=== PATIENT | female | born 1955 | race Two or more races ===

== ENCOUNTER 2018-04-22 16:38 | Emergency (ER) | payer OTHER ==
[~2018-04-22] VITALS: Ht 160 cm; Wt 72.6 kg
[~2018-04-22 16:38] MED LIST: AMOX1TAB12 PO; CALTRATE 600 W-1 TAB; CEFUROXIME500 MG PO; EFFEXOR25 MG PO; GABAPENTIN100 MG; MUPIROCIN22 GM TOP; PRINIVIL40 MG PO; TOPROL XL25 MG PO; URIN D.S. TABLE1 TAB PO; VASOTEC2.5 MG PO
[2018-04-22] MEDS ORDERED: TRAZODONE HCL50 MG (16:54)
== END 2018-04-22 23:18 | disposition home or self-care (01) ==
LOC: ER 16:38
DX: N30.80 Other cystitis without hematuria (principal); R11.11 Vomiting without nausea; R10.32 Left lower quadrant pain

== ENCOUNTER 2018-11-17 12:17 | Emergency (ER) | payer OTHER ==
[~2018-11-17] VITALS: Ht 160 cm; Wt 72.6 kg
[~2018-11-17 12:17] MED LIST changes: +TRAZODONE HCL50 MG
[2018-11-17] MEDS ORDERED: GILTUSS TR TAB1 EACH (12:32)
== END 2018-11-17 17:41 | disposition home or self-care (01) ==
LOC: ER
DX: K52.9 Noninfective gastroenteritis and colitis, unspecified (principal)

== ENCOUNTER 2019-10-08 19:35 | Emergency (ER) | payer OTHER ==
[~2019-10-08] VITALS: Ht 160 cm; Wt 72.6 kg
[~2019-10-08 19:35] MED LIST changes: +GILTUSS TR TAB1 EACH
== END 2019-10-08 23:29 | disposition home or self-care (01) ==
LOC: ER 19:35
DX: J06.9 Acute upper respiratory infection, unspecified (principal); Z03.818 Encounter for observation for suspected exposure to other biological agents ruled out

== ENCOUNTER 2020-01-01 15:01 | Emergency (ER) | payer OTHER ==
[~2020-01-01] VITALS: Ht 160 cm; Wt 72.6 kg
== END 2020-01-01 19:34 | disposition home or self-care (01) ==
LOC: ER 15:01
DX: L97.828 Non-pressure chronic ulcer of other part of left lower leg with other specified severity (principal)

== ENCOUNTER 2020-10-02 13:10 | Emergency (ER) | payer OTHER ==
[~2020-10-02] VITALS: Ht 157.5 cm; Wt 78.9 kg
[2020-10-02] MEDS ORDERED: LEVOTHYROXINE25 MCG PO (13:18)
== END 2020-10-02 18:20 | disposition home or self-care (01) ==
LOC: ER 13:10
DX: R50.9 Fever, unspecified (principal); R53.81 Other malaise; R19.7 Diarrhea, unspecified; Z03.818 Encounter for observation for suspected exposure to other biological agents ruled out

== ENCOUNTER 2020-10-08 14:37 | Emergency (ER) | payer OTHER ==
[~2020-10-08] VITALS: Ht 157.5 cm; Wt 77.6 kg
[~2020-10-08 14:37] MED LIST changes: +LEVOTHYROXINE25 MCG PO
[2020-10-08] MEDS ORDERED: LEVOTHYROXINE25 MCG PO (18:24)
== END 2020-10-08 19:14 | disposition home or self-care (01) ==
LOC: ER 14:37
DX: B34.9 Viral infection, unspecified (principal); R05 Cough; Z11.52 Encounter for screening for COVID-19

== ENCOUNTER 2020-11-21 15:38 | Emergency (ER) | payer OTHER ==
[~2020-11-21] VITALS: Ht 157.5 cm; Wt 74.4 kg
[2020-11-21] MEDS ORDERED: HIBICLENS118 ML TOP (18:50)
[2020-11-21] MEDS ORDERED: MUPIROCIN1 G1 TOP (18:50)
[2020-11-21] MEDS ORDERED: AMOX-CLAV 875-1 EACH PO (18:50)
== END 2020-11-21 19:59 | disposition home or self-care (01) ==
LOC: ER 15:38
DX: S80.812A Abrasion, left lower leg, initial encounter (principal); L08.89 Other specified local infections of the skin and subcutaneous tissue; B96.1 Klebsiella pneumoniae [K. pneumoniae] as the cause of diseases classified elsewhere; B96.89 Other specified bacterial agents as the cause of diseases classified elsewhere; X58.XXXA Exposure to other specified factors, initial encounter; Y93.89 Activity, other specified; Y92.89 Other specified places as the place of occurrence of the external cause; Y99.8 Other external cause status

== ENCOUNTER 2020-12-08 18:54 | Emergency (ER) | payer OTHER ==
[~2020-12-08] VITALS: Ht 160 cm; Wt 72.6 kg
[~2020-12-08 18:54] MED LIST changes: +AMOX-CLAV 875-1 EACH PO; +HIBICLENS118 ML TOP; +MUPIROCIN1 G1 TOP
== END 2020-12-08 23:25 | disposition home or self-care (01) ==
LOC: ER 18:54
DX: L97.828 Non-pressure chronic ulcer of other part of left lower leg with other specified severity (principal)

== ENCOUNTER 2020-12-14 07:56 | Outpatient (CLI) | payer OTHER | END 2020-12-14 08:01 | disposition home or self-care (01) | LOC: NUCLEAR 07:56 | PROVIDERS: ATTEND Surgery | DX: I87.2 Venous insufficiency (chronic) (peripheral) (principal) ==

== ENCOUNTER 2020-12-17 06:15 | Outpatient (CLI) | payer OTHER | END 2020-12-17 06:18 | disposition home or self-care (01) | LOC: LAB 06:15 | PROVIDERS: ATTEND Internal Medicine Geriatric Medicine | DX: E03.8 Other specified hypothyroidism (principal); K92.1 Melena; N39.0 Urinary tract infection, site not specified; E78.2 Mixed hyperlipidemia; D50.9 Iron deficiency anemia, unspecified; I11.9 Hypertensive heart disease without heart failure; E56.8 Deficiency of other vitamins; Z12.11 Encounter for screening for malignant neoplasm of colon; E55.9 Vitamin D deficiency, unspecified; N19 Unspecified kidney failure; E11.9 Type 2 diabetes mellitus without complications; R80.8 Other proteinuria ==

== ENCOUNTER 2020-12-22 08:37 | Outpatient (CLI) | payer OTHER | END 2020-12-22 08:59 | disposition home or self-care (01) | LOC: MAMO-SONO 08:37 | PROVIDERS: ATTEND Internal Medicine Geriatric Medicine | DX: N60.11 Diffuse cystic mastopathy of right breast (principal); N60.12 Diffuse cystic mastopathy of left breast; Z12.31 Encounter for screening mammogram for malignant neoplasm of breast; N64.4 Mastodynia ==

== ENCOUNTER 2020-12-29 12:39 | Outpatient (CLI) | payer OTHER | END 2020-12-29 12:43 | disposition home or self-care (01) | LOC: SONOGRAMA 12:39 | PROVIDERS: ATTEND Internal Medicine Geriatric Medicine | DX: E04.1 Nontoxic single thyroid nodule (principal); E03.8 Other specified hypothyroidism ==

== ENCOUNTER 2021-01-04 07:40 | Outpatient (CLI) | payer OTHER | END 2021-01-04 07:52 | disposition home or self-care (01) | LOC: LAB 07:40 | PROVIDERS: ATTEND Internal Medicine Geriatric Medicine | DX: N28.89 Other specified disorders of kidney and ureter (principal); R80.8 Other proteinuria ==

== ENCOUNTER 2021-01-28 12:58 | Outpatient (CLI) | payer OTHER | END 2021-01-28 12:59 | disposition home or self-care (01) | LOC: NUCLEAR 12:58 | PROVIDERS: ATTEND Internal Medicine Geriatric Medicine | DX: M81.0 Age-related osteoporosis without current pathological fracture (principal); M15.0 Primary generalized (osteo)arthritis ==

== ENCOUNTER 2021-02-10 13:17 | Emergency (ER) | payer OTHER ==
[~2021-02-10] VITALS: Ht 160 cm; Wt 72.6 kg
[2021-02-10] MEDS ORDERED: GLUMETZA500 MG PO (13:38)
[2021-02-10] MEDS ORDERED: ZITHROMAX TRI-500 MG PO (16:03)
== END 2021-02-10 16:09 | disposition home or self-care (01) ==
LOC: ER 13:17
DX: J06.9 Acute upper respiratory infection, unspecified (principal); Z11.52 Encounter for screening for COVID-19

== ENCOUNTER 2021-03-08 09:11 | Outpatient (CLI) | payer OTHER ==
[~2021-03-08 09:11] MED LIST changes: +GLUMETZA500 MG PO; +ZITHROMAX TRI-500 MG PO
== END 2021-03-08 09:17 | disposition home or self-care (01) ==
LOC: SONOGRAMA 09:11
PROVIDERS: ATTEND Pathology Anatomic Pathology & Clinical Pathology
DX: D34 Benign neoplasm of thyroid gland (principal); E04.8 Other specified nontoxic goiter

== ENCOUNTER 2021-03-25 12:00 | Outpatient (CLI) | payer OTHER | END 2021-03-25 12:30 | disposition home or self-care (01) | LOC: PPH VACUNA 12:00 | PROVIDERS: ATTEND Emergency Medicine Pediatric Emergency Medicine | DX: Z23 Encounter for immunization (principal) ==

== ENCOUNTER → 2021-03-25 | Outpatient (CLI) | payer OTHER | END | disposition home or self-care (01) | LOC: PPH VACUNA 11:00 | PROVIDERS: ATTEND Emergency Medicine Pediatric Emergency Medicine | DX: Z23 Encounter for immunization (principal) ==

== ENCOUNTER 2021-12-11 18:20 | Emergency (ER) | payer OTHER ==
[~2021-12-11] VITALS: Ht 160 cm; Wt 77.1 kg
== END 2021-12-11 23:13 | disposition home or self-care (01) ==
LOC: ER 18:20
DX: J40 Bronchitis, not specified as acute or chronic (principal); S92.511A Displaced fracture of proximal phalanx of right lesser toe(s), initial encounter for closed fracture; X58.XXXA Exposure to other specified factors, initial encounter; Y93.9 Activity, unspecified; Y92.018 Other place in single-family (private) house as the place of occurrence of the external cause; Y99.9 Unspecified external cause status; Z20.822 Contact with and (suspected) exposure to COVID-19; Z88.6 Allergy status to analgesic agent; Z91.013 Allergy to seafood; I10 Essential (primary) hypertension

== ENCOUNTER 2022-02-22 06:10 | Emergency (ER) | payer OTHER ==
[~2022-02-22] VITALS: Ht 160 cm; Wt 77.1 kg
== END 2022-02-22 13:11 | disposition home or self-care (01) ==
LOC: ER 06:10
DX: E11.9 Type 2 diabetes mellitus without complications (principal); L97.829 Non-pressure chronic ulcer of other part of left lower leg with unspecified severity; I87.8 Other specified disorders of veins; Z88.6 Allergy status to analgesic agent; Z91.013 Allergy to seafood; Z28.311 Partially vaccinated for COVID-19; Z79.84 Long term (current) use of oral hypoglycemic drugs

== ENCOUNTER 2022-03-09 21:08 | Emergency (ER) | payer OTHER ==
[~2022-03-09] VITALS: Ht 162.6 cm; Wt 72.6 kg
[2022-03-10] MEDS ORDERED: PEPCID40 MG PO (05:30)
[2022-03-10] MEDS ORDERED: LEVSIN/SL0.125 MG SL ×2 (05:30→05:32)
[2022-03-10] MEDS ORDERED: ONDANSETRON ODT4 MG PO (05:30)
== END 2022-03-10 06:45 | disposition home or self-care (01) ==
LOC: ER 21:08
DX: K52.9 Noninfective gastroenteritis and colitis, unspecified (principal); E11.9 Type 2 diabetes mellitus without complications; Z79.84 Long term (current) use of oral hypoglycemic drugs; I10 Essential (primary) hypertension; Z88.6 Allergy status to analgesic agent; Z91.013 Allergy to seafood; R11.2 Nausea with vomiting, unspecified

== ENCOUNTER 2022-04-28 17:22 | Emergency (ER) | payer OTHER ==
[~2022-04-28] VITALS: Ht 160 cm; Wt 72.6 kg
[~2022-04-28 17:22] MED LIST changes: +LEVSIN/SL0.125 MG SL; +ONDANSETRON ODT4 MG PO; +PEPCID40 MG PO
[2022-04-28] MEDS ORDERED: SERTRALINE HCL50 MG PO (17:39)
== END 2022-04-28 20:21 | disposition home or self-care (01) ==
LOC: ER 17:22
DX: J06.9 Acute upper respiratory infection, unspecified (principal); Z88.6 Allergy status to analgesic agent; Z91.013 Allergy to seafood

== ENCOUNTER 2022-10-27 16:13 | Emergency (ER) | payer OTHER ==
[~2022-10-27] VITALS: Ht 160 cm; Wt 72.6 kg
[~2022-10-27 16:13] MED LIST changes: +SERTRALINE HCL50 MG PO
[2022-10-27] MEDS ORDERED: DUI500 PO (20:23)
[2022-10-27] MEDS ORDERED: 3-DAY VAGINAL C21 GM VAG (20:23)
[2022-10-27] MEDS ORDERED: METRONIDAZOLE500 MG PO (20:23)
== END 2022-10-27 20:29 | disposition home or self-care (01) ==
LOC: ER 16:13
PROVIDERS: General Practice
DX: N39.0 Urinary tract infection, site not specified (principal); R30.0 Dysuria; E11.65 Type 2 diabetes mellitus with hyperglycemia; Z79.84 Long term (current) use of oral hypoglycemic drugs; I10 Essential (primary) hypertension; Z88.6 Allergy status to analgesic agent; Z91.013 Allergy to seafood; R10.2 Pelvic and perineal pain
CPT/HCPCS: 36415; 96365; 96366; 99284; J1815; J7042

== ENCOUNTER 2022-11-06 10:30 | Emergency (ER) | payer OTHER ==
[~2022-11-06] VITALS: Ht 160 cm; Wt 72.6 kg
[~2022-11-06 10:30] MED LIST changes: +3-DAY VAGINAL C21 GM VAG; +DUI500 PO; +METRONIDAZOLE500 MG PO
== END 2022-11-06 13:04 | disposition home or self-care (01) ==
LOC: ER 10:30
DX: B35.4 Tinea corporis (principal); R21 Rash and other nonspecific skin eruption

== ENCOUNTER 2022-12-13 08:36 | Outpatient (CLI) | payer OTHER | END 2022-12-13 08:46 | disposition home or self-care (01) | LOC: SONOGRAMA 08:36 | PROVIDERS: ATTEND General Practice | DX: R10.2 Pelvic and perineal pain (principal); Z88.6 Allergy status to analgesic agent; Z91.013 Allergy to seafood ==

== ENCOUNTER 2023-02-24 14:22 | Emergency (ER) | payer OTHER ==
[~2023-02-24] VITALS: Ht 160 cm; Wt 77.1 kg
[2023-02-24] MEDS ORDERED: DOLOGESIC-DF 51 EACH PO (15:17)
[2023-02-24] MEDS ORDERED: [UNRECOGNIZED DRUG - OTHER] TOP (18:36)
[2023-02-24] MEDS ORDERED: AMOX-CLAV 875-1 EAC1 PO (18:36)
== END 2023-02-24 20:48 | disposition home or self-care (01) ==
LOC: ER 14:22
DX: L03.011 Cellulitis of right finger (principal); E11.9 Type 2 diabetes mellitus without complications; Z79.84 Long term (current) use of oral hypoglycemic drugs; I10 Essential (primary) hypertension; Z88.6 Allergy status to analgesic agent; Z91.013 Allergy to seafood
CPT/HCPCS: 96372; 99283; J0696

== ENCOUNTER 2023-02-27 05:55 | Emergency (ER) | payer OTHER ==
[~2023-02-27] VITALS: Ht 160 cm; Wt 77.1 kg
[~2023-02-27 05:55] MED LIST changes: +AMOX-CLAV 875-1 EAC1 PO; +DOLOGESIC-DF 51 EACH PO; +[UNRECOGNIZED DRUG - OTHER] TOP
[2023-02-27] MEDS ORDERED: CHILDREN'S ASPI81 MG PO (06:21)
[2023-02-27 08:53] LABS: HEMATOCRIT 41.8 % (36.0-45.00); HEMOGLOBIN 14.5 g/dL (12.0-15.00); MEAN CELL VOLUME 85.4 fL (80.00-100.00); MEAN CORPUSCULAR HEMOGLOBIN 29.7 pg (27.00-32.0); MEAN CORPUSCULAR HGB CONC 34.8 g/dl (32.0-36.0); PLATELET COUNT 177 K/uL (150-450); RED CELL DISTRIBUTION WIDTH 13.4 % (11.5-14.5)
[2023-02-27] MEDS ORDERED: BACTRIM DS TAB1 EACH PO (09:29)
== END 2023-02-27 09:47 | disposition home or self-care (01) ==
LOC: ER 05:55
PROVIDERS: General Practice
DX: L03.011 Cellulitis of right finger (principal); I10 Essential (primary) hypertension; E11.9 Type 2 diabetes mellitus without complications; Z79.84 Long term (current) use of oral hypoglycemic drugs; Z88.6 Allergy status to analgesic agent; Z91.013 Allergy to seafood
CPT/HCPCS: 10060; 36415; 96365; 99282; J0696

== ENCOUNTER → 2023-03-29 | Emergency (ER) | payer OTHER ==
[~2023-03-29] VITALS: Ht 160 cm; Wt 72.6 kg
[~2023-03-29] MED LIST changes: +BACTRIM DS TAB1 EACH PO; +CHILDREN'S ASPI81 MG PO; +PROTONIX40 MG PO
[2023-03-29 04:00] LABS: HEMATOCRIT 39.6 % (36.0-45.00); HEMOGLOBIN 13.5 g/dL (12.0-15.00); MEAN CELL VOLUME 84.4 fL (80.00-100.00); MEAN CORPUSCULAR HEMOGLOBIN 28.8 pg (27.00-32.0); MEAN CORPUSCULAR HGB CONC 34.1 g/dl (32.0-36.0); PLATELET COUNT 174 K/uL (150-450); RED BLOOD COUNT 4.69 M/uL (4.00-6.00); RED CELL DISTRIBUTION WIDTH 13.5 % (11.5-14.5)
== END | disposition home or self-care (01) ==
LOC: ER 01:26
PROVIDERS: General Practice
DX: R50.9 Fever, unspecified (principal); Z88.6 Allergy status to analgesic agent; Z91.013 Allergy to seafood; B34.9 Viral infection, unspecified; R11.10 Vomiting, unspecified; K52.89 Other specified noninfective gastroenteritis and colitis
CPT/HCPCS: 36415; 96365; 96366; 99282; J7042

== ENCOUNTER 2023-04-13 18:22 | Emergency (ER) | payer OTHER ==
[~2023-04-13] VITALS: Ht 162.6 cm; Wt 89.8 kg
[2023-04-13] MEDS ORDERED: ZOLOFT25 MG PO (18:46)
[2023-04-13] MEDS ORDERED: ACETAMINOPHEN 500 MG GEL..CAP PO ONE (19:00)
[2023-04-13] MEDS ORDERED: DICLOFENAC SODI75 MG PO (21:37)
== END 2023-04-13 21:48 | disposition home or self-care (01) ==
LOC: ER 18:22
DX: M25.562 Pain in left knee (principal); Z88.6 Allergy status to analgesic agent; Z91.013 Allergy to seafood

== ENCOUNTER 2023-05-03 12:41 | Outpatient (CLI) | payer OTHER ==
[~2023-05-03 12:41] MED LIST changes: +DICLOFENAC SODI75 MG PO; +ZOLOFT25 MG PO
== END 2023-05-03 12:46 | disposition home or self-care (01) ==
LOC: RAD 12:41
PROVIDERS: ATTEND General Practice
DX: I70.0 Atherosclerosis of aorta (principal)

== ENCOUNTER 2023-05-11 07:51 | Outpatient (CLI) | payer OTHER | END 2023-05-11 07:52 | disposition home or self-care (01) | LOC: NUCLEAR 07:51 | DX: I73.9 Peripheral vascular disease, unspecified (principal); E11.51 Type 2 diabetes mellitus with diabetic peripheral angiopathy without gangrene ==

== ENCOUNTER 2023-05-24 10:24 | Outpatient (CLI) | payer OTHER | END 2023-05-24 10:30 | disposition home or self-care (01) | LOC: NUCLEAR 10:24 | DX: M81.0 Age-related osteoporosis without current pathological fracture (principal) ==

== ENCOUNTER 2023-10-13 04:50 | Emergency (ER) | payer OTHER ==
[~2023-10-13] VITALS: Ht 160 cm; Wt 72.6 kg
[2023-10-13] MEDS ORDERED: METFORMIN HCL500 M4 PO (05:04)
[2023-10-13] MEDS ORDERED: SIMVASTATIN20 MG PO (05:04)
[2023-10-13] MEDS ORDERED: LISINOPRIL20 MG PO (05:04)
[2023-10-13] MEDS ORDERED: CEFAZOLIN SODIUM 1,000 MG VIAL IM STA (05:54)
[2023-10-13] MEDS ORDERED: CEFAZOLIN SODIUM 1,000 MG VIAL ONE (06:00)
== END 2023-10-13 06:06 | disposition home or self-care (01) ==
LOC: ER 04:52
DX: S50.819A Abrasion of unspecified forearm, initial encounter (principal); W22.8XXA Striking against or struck by other objects, initial encounter; Y93.89 Activity, other specified; Y92.89 Other specified places as the place of occurrence of the external cause; Z88.6 Allergy status to analgesic agent; Z91.013 Allergy to seafood
CPT/HCPCS: 96372; 99282; J0690

== ENCOUNTER 2024-08-11 08:44 | Emergency (ER) | payer OTHER ==
[~2024-08-11] VITALS: Ht 160 cm; Wt 72.6 kg
[~2024-08-11 08:44] MED LIST changes: +LISINOPRIL20 MG PO; +METFORMIN HCL500 M4 PO; +SIMVASTATIN20 MG PO
[2024-08-11] MEDS ORDERED: MORPHINE SULFATE 4 MG/ML VIAL IV ONE (09:00)
[2024-08-11] MEDS ORDERED: BARIUM SULFATE 450 ML ORAL.SUSP PO ONE (09:24)
[2024-08-11 09:59] LABS: CALCIUM 8.7 mg/dL (8.5-10.1); CREATININE SERUM 0.92 mg/dL (0.55-1.02); GFR 60.7; POTASSIUM 3.94 mEq/L (3.5-5.1)
[2024-08-11 10:07] LABS: BASO % 0.7 % (0.1-1.2); EOS # 0.14 (0.04-0.54); EOS % 1.8 % (0.7-7.0); HEMATOCRIT 39.9 % (34.1-44.9); HEMOGLOBIN 13.7 g/dL (11.2-15.7); LYMPH % 18.3 % (19.3-53.1); MEAN CORPUSCULAR HEMOGLOBIN 28.7 pg (25.6-32.2); MONO # 0.63 (0.24-0.82); MONO % 8.2 % (4.7-12.5); NEUT # 5.44 (1.56-6.13); NEUT % 70.9 % (34.0-71.1); PLATELET COUNT 183 K/uL (163-369); RED BLOOD COUNT 4.78 M/uL (3.93-5.22); RED CELL DISTRIBUTION WIDTH 14.1 % (11.6-14.4)
[2024-08-11 10:08] LABS: PH,URINE 6.5 (5.0-8.0); URINE APPEARANCE Clear; URINE BILIRRUBIN Negative (NEGATIVE); URINE BLOOD Small; URINE COLOR Yellow; URINE GLUCOSE Negative (NEGATIVE); URINE KETONE Negative (NEGATIVE); URINE LEUKOCYTE Trace; URINE NITRATE Negative; URINE PROTEIN Negative (NEGATIVE); URINE UROBILINOGEN 0.2 E.U./dl
[2024-08-11 10:12] LABS: URINE BACTERIA 62.3 uL (0.0-1933); URINE EPITHELIAL CELLS 2.3 uL (0.0-38.8); URINE RBC 23.2 uL (0.0-20.8); URINE WBC 29.2 uL (0.0-23.2)
[2024-08-11 10:30] LABS: URINE CAST 0.14 uL (0.0-1.40)
[2024-08-11] MEDS ORDERED: ACETAMINOPHEN 500 MG GEL..CAP PO STA (16:07)
[2024-08-11] MEDS ORDERED: ACETAMINOPHEN 500 MG GEL..CAP PO ONE (16:14)
== END 2024-08-11 21:59 | disposition home or self-care (01) ==
LOC: ER 08:44
PROVIDERS: Emergency Medicine
DX: N20.9 Urinary calculus, unspecified (principal); R10.9 Unspecified abdominal pain; I10 Essential (primary) hypertension; E11.9 Type 2 diabetes mellitus without complications; Z79.84 Long term (current) use of oral hypoglycemic drugs; Z88.6 Allergy status to analgesic agent; Z91.013 Allergy to seafood
CPT/HCPCS: 36415; 74177; 96365; 99284; J2270; Q9965

== ENCOUNTER 2024-08-12 19:42 | Emergency (ER) | payer OTHER ==
[~2024-08-12] VITALS: Ht 160 cm; Wt 72.6 kg
[2024-08-12] MEDS ORDERED: CEFTRIAXONE SODIUM 2,000 MG VIAL IV ONE (23:45)
[2024-08-12] MEDS ORDERED: 0.9 % SODIUM CHLORIDE 1,000 ML IV ONE (23:45)
[2024-08-13] MEDS ORDERED: CEFTRIAXONE SODIUM 2,000 MG VIAL ONE
[2024-08-13 01:52] LABS: BASO % 0.6 % (0.1-1.2); EOS # 0.02 (0.04-0.54); EOS % 0.2 % (0.7-7.0); HEMOGLOBIN 13.8 g/dL (11.2-15.7); LYMPH # 2.27 (1.18-3.74); LYMPH % 18.3 % (19.3-53.1); MEAN CORPUSCULAR HEMOGLOBIN 27.8 pg (25.6-32.2); MONO # 1.07 (0.24-0.82); MONO % 8.6 % (4.7-12.5); NEUT # 8.92 (1.56-6.13); NEUT % 71.8 % (34.0-71.1); PLATELET COUNT 212 K/uL (163-369); RED BLOOD COUNT 4.97 M/uL (3.93-5.22); RED CELL DISTRIBUTION WIDTH 14.1 % (11.6-14.4)
[2024-08-13 02:17] LABS: ALBUMIN 3.7 gm/dL (3.4-5.0); BILIRUBIN TOTAL 1.1 mg/dL (0.3-1.2); CALCIUM 9.6 mg/dL (8.5-10.1); CREATININE SERUM 1.16 mg/dL (0.55-1.02); GFR 46.46; GLOBULINA 4.6 G/DL (2.4-3.5); POTASSIUM 3.82 mEq/L (3.5-5.1); TOTAL PROTEIN 8.3 gm/dL (6.4-8.2)
[2024-08-13] MEDS ORDERED: TRAMADOL HCL 50 MG TABLET PO STA (03:37)
== END 2024-08-13 05:41 | disposition home or self-care (01) ==
LOC: ER 19:42
PROVIDERS: Preventive Medicine Public Health & General Preventive Medicine
DX: N20.1 Calculus of ureter (principal); N13.9 Obstructive and reflux uropathy, unspecified; N13.30 Unspecified hydronephrosis; N20.0 Calculus of kidney; I10 Essential (primary) hypertension; E11.9 Type 2 diabetes mellitus without complications; Z79.84 Long term (current) use of oral hypoglycemic drugs; Z88.6 Allergy status to analgesic agent; Z91.013 Allergy to seafood
CPT/HCPCS: 36415; 96365; 96366; 99282; J0696; J7030

== ENCOUNTER 2024-08-14 01:00 | Emergency (ER) | payer OTHER ==
[~2024-08-14] VITALS: Ht 160 cm; Wt 72.6 kg
[2024-08-14 01:34] VITALS: BP 126/76; O2SAT 97
[2024-08-14] MEDS ORDERED: 0.9 % SODIUM CHLORIDE 500 ML IV STA (02:06)
[2024-08-14] MEDS ORDERED: FAMOtidine 10 MG/ML (4ML VIAL) IV PUSH STA (02:07)
[2024-08-14] MEDS ORDERED: ONDANSETRON HCL 2 MG/ML VIAL IV STA (02:07)
[2024-08-14] MEDS ORDERED: DIPHENOXYLATE HCL/ATROPINE 1 UDTAB TABLET PO STA (02:09)
[2024-08-14] MEDS ORDERED: HYOSCYAMINE SULFATE 0.125 MG TAB.SUBL SL ONE (02:15)
[2024-08-14] MEDS ORDERED: FAMOTIDINE/PF 20 MG/2 ML VIAL ONE (02:25)
[2024-08-14] MEDS ORDERED: HYOSCYAMINE SULFATE 0.125 MG TAB.SUBL ONE (02:25)
[2024-08-14] MEDS ORDERED: ONDANSETRON HCL 2 MG/ML VIAL ONE (02:25)
[2024-08-14 03:10] LABS: BASO % 0.3 % (0.1-1.2); EOS # 0.03 (0.04-0.54); EOS % 0.2 % (0.7-7.0); HEMATOCRIT 39.3 % (34.1-44.9); HEMOGLOBIN 13.4 g/dL (11.2-15.7); LYMPH # 1.79 (1.18-3.74); LYMPH % 14.3 % (19.3-53.1); MEAN CORPUSCULAR HEMOGLOBIN 28.4 pg (25.6-32.2); MONO # 1.18 (0.24-0.82); MONO % 9.4 % (4.7-12.5); NEUT # 9.44 (1.56-6.13); NEUT % 75.2 % (34.0-71.1); PLATELET COUNT 186 K/uL (163-369); RED BLOOD COUNT 4.72 M/uL (3.93-5.22); RED CELL DISTRIBUTION WIDTH 13.6 % (11.6-14.4)
[2024-08-14 03:29] LABS: CALCIUM 9.2 mg/dL (8.5-10.1); CREATININE SERUM 1.06 mg/dL (0.55-1.02); POTASSIUM 5.01 mEq/L (3.5-5.1)
[2024-08-14 04:05] LABS: GFR 51.55
== END 2024-08-14 06:00 | disposition home or self-care (01) ==
LOC: ER 01:00
DX: K52.9 Noninfective gastroenteritis and colitis, unspecified (principal); Z88.6 Allergy status to analgesic agent; Z91.013 Allergy to seafood
CPT/HCPCS: 36415; 96365; 99283; J3490

== ENCOUNTER → 2024-08-20 | Emergency (ER) | payer OTHER ==
[~2024-08-20] VITALS: Ht 160 cm; Wt 72.6 kg
[~2024-08-20] MED LIST changes: +0.9 % SODIUM CHLORIDE 500 ML IV ONE; +CEFTRIAXONE SODIUM 1,000 MG VIAL IV STA; +CEFTRIAXONE SODIUM 1,000 MG VIAL ONE; +CIPRO500 MG PO; +PROMETHAZINE HCL 25 MG/ML AMPUL IM STA; +PROMETHAZINE HCL 25 MG/ML AMPUL ONE
[2024-08-21 03:34] LABS: PH,URINE 5.5 (5.0-8.0); URINE APPEARANCE Clear; URINE BILIRRUBIN Negative (NEGATIVE); URINE BLOOD Large; URINE COLOR Yellow; URINE GLUCOSE Negative (NEGATIVE); URINE KETONE Negative (NEGATIVE); URINE LEUKOCYTE Small; URINE NITRATE Negative; URINE PROTEIN Trace (NEGATIVE); URINE UROBILINOGEN 0.2 E.U./dl
[2024-08-21 03:40] LABS: URINE BACTERIA 155.3 uL (0.0-1933); URINE EPITHELIAL CELLS 5.6 uL (0.0-38.8); URINE RBC 127.2 uL (0.0-20.8)
[2024-08-21 03:42] LABS: URINE CAST 0.14 uL (0.0-1.40)
[2024-08-21 03:43] LABS: INR 1.02; PARTIAL THROMBOPLASTIN TIME 23.1 SECONDS (22.0-34.0); PROTHROMBIN TIME 11.1 SECONDS (9.0-11.5)
[2024-08-21 03:47] LABS: ALBUMIN 3.1 gm/dL (3.4-5.0); BILIRUBIN TOTAL 0.23 mg/dL (0.3-1.2); CALCIUM 9.3 mg/dL (8.5-10.1); CREATININE SERUM 0.93 mg/dL (0.55-1.02); GFR 59.95; GLOBULINA 4.2 G/DL (2.4-3.5); POTASSIUM 4.34 mEq/L (3.5-5.1); TOTAL PROTEIN 7.3 gm/dL (6.4-8.2)
[2024-08-21 03:57] LABS: BASO % 0.7 % (0.1-1.2); EOS # 0.22 (0.04-0.54); EOS % 2.5 % (0.7-7.0); HEMOGLOBIN 12.5 g/dL (11.2-15.7); LYMPH # 2.17 (1.18-3.74); LYMPH % 24.5 % (19.3-53.1); MONO # 0.77 (0.24-0.82); MONO % 8.7 % (4.7-12.5); NEUT # 5.57 (1.56-6.13); PLATELET COUNT 229 K/uL (163-369); RED BLOOD COUNT 4.46 M/uL (3.93-5.22); RED CELL DISTRIBUTION WIDTH 13.5 % (11.6-14.4)
== END | disposition home or self-care (01) ==
LOC: ER 22:58
PROVIDERS: General Practice
DX: N39.0 Urinary tract infection, site not specified (principal); R10.9 Unspecified abdominal pain; R30.0 Dysuria; I10 Essential (primary) hypertension; E11.9 Type 2 diabetes mellitus without complications; Z79.84 Long term (current) use of oral hypoglycemic drugs; Z88.6 Allergy status to analgesic agent; Z91.013 Allergy to seafood
CPT/HCPCS: 36415; 74240; 96365; 96366; 96372; 99283; J0696; J3490; J7042

== ENCOUNTER 2024-08-29 20:43 | Emergency (ER) | payer OTHER ==
[~2024-08-29] VITALS: Ht 160 cm; Wt 72.6 kg
[~2024-08-29 20:43] MED LIST changes: -0.9 % SODIUM CHLORIDE 500 ML IV ONE; -CEFTRIAXONE SODIUM 1,000 MG VIAL IV STA; -CEFTRIAXONE SODIUM 1,000 MG VIAL ONE; -PROMETHAZINE HCL 25 MG/ML AMPUL IM STA; -PROMETHAZINE HCL 25 MG/ML AMPUL ONE
[2024-08-29] MEDS ORDERED: FAMOTIDINE/PF 20 MG in 0.9 % SODIUM CHLORIDE 8 ML IV PUSH STA (21:03)
[2024-08-29] MEDS ORDERED: 0.9 % SODIUM CHLORIDE 1,000 ML IV SCH (21:15)
[2024-08-29] MEDS ORDERED: DIPHENOXYLATE HCL/ATROPINE 1 UDTAB TABLET PO ONE (21:15)
[2024-08-29] MEDS ORDERED: ONDANSETRON HCL 2 MG/ML VIAL IV ONE (21:15)
[2024-08-29 21:48] LABS: BASO % 0.6 % (0.1-1.2); EOS # 0.25 (0.04-0.54); EOS % 3.2 % (0.7-7.0); LYMPH # 1.75 (1.18-3.74); LYMPH % 22.7 % (19.3-53.1); MEAN PLATELET VOLUME 10.10 fl (9.4-12.4); MONO # 0.83 (0.24-0.82); MONO % 10.8 % (4.7-12.5); NEUT # 4.81 (1.56-6.13); NEUT % 62.3 % (34.0-71.1); RED CELL DISTRIBUTION WIDTH 13.5 % (11.6-14.4)
[2024-08-29 22:12] LABS: ALT/SGPT 36.0 U/L (12-78); AST/SGOT 28.0 U/L (15-37); BILIRUBIN TOTAL 0.43 mg/dL (0.3-1.2); BUN CREA RATIO 21.0 (7.0-25.0); CREATININE SERUM 0.81 mg/dL (0.55-1.02); GFR 70.31; GLOBULINA 4.7 G/DL (2.4-3.5); GLUCOSE FASTING 132.0 mg/dL (65-100); OSMOLALITY SERUM 279.0 MOSM/KG (275-295)
[2024-08-29 22:30] LABS: COVID-19 AG POSITIVE (NEGATIVE)
[2024-08-29] MEDS ORDERED: TUSNEL LIQUID178 ML PO (22:40)
[2024-08-29] MEDS ORDERED: ONDANSETRON ODT8 MG PO (22:40)
[2024-08-29] MEDS ORDERED: PAXLOVID 300-11 EAC1 PO (22:40)
[2024-08-29] MEDS ORDERED: PEPCID AC20 MG PO (22:40)
== END 2024-08-29 22:51 | disposition home or self-care (01) ==
LOC: ER 20:43
PROVIDERS: General Practice
DX: U07.1 COVID-19 (principal); Z88.6 Allergy status to analgesic agent; Z91.013 Allergy to seafood; I10 Essential (primary) hypertension; E11.9 Type 2 diabetes mellitus without complications; Z79.84 Long term (current) use of oral hypoglycemic drugs
CPT/HCPCS: 36415; 96365; 99282; J2405; J3490; J7030

== ENCOUNTER 2024-11-27 13:34 | Inpatient (IN) | payer OTHER ==
[~2024-11-27] VITALS: Ht 160 cm; Wt 72.6 kg
[~2024-11-27 13:34] MED LIST changes: +ONDANSETRON ODT8 MG PO; +PAXLOVID 300-11 EAC1 PO; +PEPCID AC20 MG PO; +TUSNEL LIQUID178 ML PO
--- NOTE | 2024-11-27 13:53 | NUR ---
SE RECIBE PACIENTE EN AMBULANCIA ALERTA Y ORIENTADA X3, REFIERE TENER ULCERA EN PIERNA IZQUIERDA. SE MONITOREAN VS Y SE UBICA.
[2024-11-27] MEDS ORDERED: CEFTRIAXONE SODIUM 2,000 MG VIAL ONE (14:24)
[2024-11-27] MEDS ORDERED: CEFTRIAXONE SODIUM 1,000 MG VIAL IV ONE (14:30)
[2024-11-27] MEDS ORDERED: BENZONATATE 100 MG CAPSULE PO ONE (14:30)
--- NOTE | 2024-11-27 15:31 | NUR ---
SE ORIENTA A PACIENTE SOBRE TX MEDICO, REFIERE ENTENDER. SE REALIZAN MUESTRAS DE LABORATORIO BAJO MEDIDAS ASEPTICAS. SE ADMINISTRAN MEDICAMENTOS YOVANA ORDEN MEDICA. JESUS X REALIZADOS.
[2024-11-27 15:47] LABS: ALT/SGPT 36.0 U/L (12-78); AST/SGOT 31.0 U/L (15-37); BILIRUBIN TOTAL 0.46 mg/dL (0.3-1.2); BUN CREA RATIO 19.0 (7.0-25.0); CREATININE SERUM 0.9 mg/dL (0.55-1.02); GFR 62.26; GLOBULINA 4.7 G/DL (2.4-3.5); OSMOLALITY SERUM 295.0 MOSM/KG (275-295)
[2024-11-27 15:49] LABS: COVID-19 AG NEGATIVE (NEGATIVE)
[2024-11-27 15:50] LABS: GLUCOSE FASTING 326.0 mg/dL (65-100)
[2024-11-27 15:53] LABS: BASO % 1.1 % (0.1-1.2); EOS # 0.27 (0.04-0.54); EOS % 3.3 % (0.7-7.0); LYMPH # 2.45 (1.18-3.74); LYMPH % 30.4 % (19.3-53.1); MEAN PLATELET VOLUME 10.50 fl (9.4-12.4); MONO # 0.63 (0.24-0.82); MONO % 7.8 % (4.7-12.5); NEUT # 4.60 (1.56-6.13); NEUT % 57.0 % (34.0-71.1); RED CELL DISTRIBUTION WIDTH 13.2 % (11.6-14.4)
[2024-11-27 16:16] LABS: URINE APPEARANCE Cloudy; URINE BILIRRUBIN Negative (NEGATIVE); URINE BLOOD Large; URINE COLOR Yellow; URINE KETONE Negative (NEGATIVE); URINE LEUKOCYTE Moderate; URINE NITRATE Negative; URINE UROBILINOGEN 0.2 E.U./dl
[2024-11-27 16:20] LABS: URINE BACTERIA 226.7 uL (0.0-1933); URINE CAST 3.51 uL (0.0-1.40); URINE EPITHELIAL CELLS 22.1 uL (0.0-38.8); URINE RBC 244.9 uL (0.0-20.8); URINE WBC 397.3 uL (0.0-23.2)
[2024-11-27] MEDS ORDERED: INSULIN REGULAR, HUMAN 1,000 UNIT/10 ML UNITS IV ONE (16:30)
[2024-11-27 17:02] LABS: URINE GLUCOSE >=1000 MG/DL (NEGATIVE); URINE PROTEIN 100 (NEGATIVE)
[2024-11-27 17:03] LABS: URINE CRYSTALS FEW /HPF
[2024-11-27 17:56] LABS: INR 1.05
[2024-11-27] MEDS ORDERED: ATORVASTATIN CALCIUM 20 MG TABLET PO SCH (20:21)
[2024-11-27] MEDS ORDERED: LISINOPRIL 20 MG TABLET PO SCH (20:22)
[2024-11-27] MEDS ORDERED: 0.9 % SODIUM CHLORIDE 1,000 ML IV SCH (20:30)
[2024-11-27] MEDS ORDERED: INSULIN LISPRO 1,000 UNIT/10 ML UNITS SUBCUTANEO PRN (20:30)
[2024-11-27] MEDS ORDERED: DEXTROSE 50 % IN WATER 0.5 G/ML DISP.SYRIN IV PRN (20:30)
[2024-11-27] MEDS ORDERED: ENOXAPARIN SODIUM 40 MG/0.4 ML SYRINGE SUBCUTANEO SCH (20:30)
[2024-11-27] MEDS ORDERED: ACETAMINOPHEN 325 MG TABLET PO PRN (20:30)
[2024-11-27] MEDS ORDERED: CEFEPIME HCL 2,000 MG in 0.9 % SODIUM CHLORIDE 100 ML IV SCH (20:31)
[2024-11-27] MEDS ORDERED: FAMOTIDINE/PF 20 MG in 0.9 % SODIUM CHLORIDE 8 ML IV PUSH SCH (21:00)
[2024-11-27] MEDS ORDERED: MORPHINE SULFATE 2 MG/ML SYRINGE IV PRN (21:00)
[2024-11-27] MEDS ORDERED: ENOXAPARIN SODIUM 40 MG/0.4 ML SYRINGE SUBCUTANEO ONE (22:13)
[2024-11-28 05:06] LABS: ALT/SGPT 36.0 U/L (12-78); AST/SGOT 49.0 U/L (15-37); BILIRUBIN TOTAL 0.67 mg/dL (0.3-1.2); BUN CREA RATIO 20.0 (7.0-25.0); CREATININE SERUM 0.64 mg/dL (0.55-1.02); GFR 92.28; GLOBULINA 4.1 G/DL (2.4-3.5); GLUCOSE FASTING 170.0 mg/dL (65-100); OSMOLALITY SERUM 285.0 MOSM/KG (275-295)
[2024-11-28 07:57] VITALS: BP 140/82; O2SAT 98
[2024-11-28 09:43] LABS: BASO % 0.7 % (0.1-1.2); EOS # 0.26 (0.04-0.54); EOS % 4.3 % (0.7-7.0); LYMPH # 2.01 (1.18-3.74); LYMPH % 33.0 % (19.3-53.1); MEAN PLATELET VOLUME 10.40 fl (9.4-12.4); MONO # 0.39 (0.24-0.82); MONO % 6.4 % (4.7-12.5); NEUT # 3.37 (1.56-6.13); NEUT % 55.1 % (34.0-71.1); RED CELL DISTRIBUTION WIDTH 13.2 % (11.6-14.4)
[2024-11-28] MEDS ORDERED: MAGNESIUM SULFATE IN WATER 4 GM/100 ML PIGGYBACK IV ONE (10:30)
[2024-11-28 16:02] VITALS: BP 130/68; O2SAT 100
[2024-11-28] MEDS ORDERED: FAMOTIDINE/PF 20 MG/2 ML VIAL ONE ×2 (16:29→19:02)
[2024-11-28] MEDS ORDERED: AMLODIPINE BESYLATE 2.5 MG TABLET PO SCH (17:00)
[2024-11-28] MEDS ORDERED: APIXABAN 5 MG TABLET PO SCH (17:00)
[2024-11-28 18:23] VITALS: BP 143/80; O2SAT 98
[2024-11-29 02:47] VITALS: BP 116/69; O2SAT 96
[2024-11-29 08:49] VITALS: BP 138/87
[2024-11-29] MEDS ORDERED: FAMOTIDINE/PF 20 MG/2 ML VIAL ONE (16:04)
[2024-11-29 20:30] VITALS: BP 144/81; O2SAT 97
[2024-11-29] MEDS ORDERED: GUAIFEN/DEXTROMETHORPHAN/PE 10 ML BLIST.PACK PO PRN (22:00)
[2024-11-30 02:01] VITALS: BP 104/58; O2SAT 96
[2024-11-30 08:19] LABS: BASO % 0.5 % (0.1-1.2); EOS # 0.31 (0.04-0.54); EOS % 5.5 % (0.7-7.0); LYMPH # 2.18 (1.18-3.74); LYMPH % 38.9 % (19.3-53.1); MEAN PLATELET VOLUME 11.00 fl (9.4-12.4); MONO # 0.52 (0.24-0.82); MONO % 9.3 % (4.7-12.5); NEUT # 2.55 (1.56-6.13); NEUT % 45.4 % (34.0-71.1); RED CELL DISTRIBUTION WIDTH 13.1 % (11.6-14.4)
[2024-11-30 08:38] LABS: ALT/SGPT 33.0 U/L (12-78); AST/SGOT 27.0 U/L (15-37); BILIRUBIN TOTAL 0.42 mg/dL (0.3-1.2); BUN CREA RATIO 19.0 (7.0-25.0); CREATININE SERUM 0.69 mg/dL (0.55-1.02); GFR 84.61; GLOBULINA 4.1 G/DL (2.4-3.5); GLUCOSE FASTING 161.0 mg/dL (65-100); OSMOLALITY SERUM 289.0 MOSM/KG (275-295)
[2024-11-30] MEDS ORDERED: LOSARTAN POTASSIUM 50 MG TABLET PO SCH (09:00)
[2024-11-30 09:22] VITALS: BP 136/78
[2024-11-30] MEDS ORDERED: FAMOTIDINE/PF 20 MG/2 ML VIAL ONE (16:19)
[2024-11-30 18:05] VITALS: BP 122/74
[2024-12-01 00:51] VITALS: BP 142/74
[2024-12-01 09:30] VITALS: BP 138/75
[2024-12-01] MEDS ORDERED: LORATADINE 10 MG TABLET PO SCH (17:00)
[2024-12-01] MEDS ORDERED: FAMOTIDINE/PF 20 MG/2 ML VIAL ONE (17:06)
[2024-12-01 18:35] VITALS: BP 134/82
[2024-12-02 01:04] VITALS: BP 107/68; O2SAT 96
[2024-12-02 08:00] VITALS: BP 125/76; O2SAT 97
[2024-12-02 20:06] VITALS: BP 122/78
[2024-12-03 02:19] VITALS: BP 118/74; O2SAT 97
[2024-12-03 08:44] VITALS: BP 111/76
[2024-12-03 19:04] VITALS: BP 120/73; O2SAT 99
[2024-12-04 02:23] VITALS: BP 100/63; O2SAT 96
[2024-12-04 09:18] VITALS: BP 117/81; O2SAT 98
[2024-12-04] MEDS ORDERED: COZAAR50 MG PO (13:02)
[2024-12-04] MEDS ORDERED: ELIQUIS5 MG PO (13:02)
[2024-12-04] MEDS ORDERED: NORVASC2.5 M1 PO (13:02)
[2024-12-04] MEDS ORDERED: LIPITOR20 MG PO (13:02)
[2024-12-04] MEDS ORDERED: AMOX-CLAV 875-1 EAC1 PO (15:45)
== END 2024-12-04 14:32 | disposition home or self-care (01) | DRG 300 ==
LOC: ER 13:34 → SEC-K 20:43 → MEDI 11-28 14:01
PROVIDERS: Emergency Medicine; General Practice; ADMIT Internal Medicine; ATTEND Internal Medicine
PROC: B54CZZZ Ultrasonography of Left Lower Extremity Veins (ICD-10-PCS; principal; 2024-11-27)
PROC: B44GZZZ Ultrasonography of Left Lower Extremity Arteries (ICD-10-PCS; 2024-11-27)
DX: I83.028 Varicose veins of left lower extremity with ulcer other part of lower leg (principal); I82.402 Acute embolism and thrombosis of unspecified deep veins of left lower extremity; L97.528 Non-pressure chronic ulcer of other part of left foot with other specified severity; E11.8 Type 2 diabetes mellitus with unspecified complications